=== PATIENT | male | born 1960 | race Caucasian/White ===

== ENCOUNTER → 2022-11-12 | Outpatient (CLI) | payer OTHER | END | disposition home or self-care (01) | LOC: SHCH 09:08 | PROVIDERS: ATTEND Internal Medicine Cardiovascular Disease | DX: I08.0 Rheumatic disorders of both mitral and aortic valves (principal); R01.1 Cardiac murmur, unspecified; I11.9 Hypertensive heart disease without heart failure | CPT/HCPCS: 93306 ==

== ENCOUNTER 2024-04-03 07:33 | Inpatient (IN) | payer OTHER ==
[~2024-04-03] VITALS: Ht 190.5 cm; Wt 117.7 kg
[2024-04-03 08:46] LABS: BASOPHILS # (AUTO) 0.02 K/uL (0.00-0.20); BASOPHILS % (AUTO) 0.3 % (0.0-5.0); EOSINOPHILS # (AUTO) 0.04 K/uL (0.00-0.70); EOSINOPHILS % (AUTO) 0.6 % (0.0-8.0); HEMATOCRIT 38.7 % (42-54); IMMATURE GRANULOCYTE ABSOLUTE 0.03 K/uL (0-1); LYMPHOCYTES # (AUTO) 0.4 K/uL (1.0-4.8); LYMPHOCYTES % (AUTO) 4.9 % (21.0-51.0); MEAN CORPUSCULAR HEMOGLOBIN 29.1 pg (27.0-33.0); MEAN CORPUSCULAR HGB CONC 33.6 g/dL (32.0-36.0); MEAN CORPUSCULAR VOLUME 86.6 fL (79-99); MONOCYTES # (AUTO) 0.6 K/uL (0.1-1.0); MONOCYTES % (AUTO) 8.7 % (3.0-13.0); NEUTROPHILS % (AUTO) 85.1 % (40.0-77.0); PLATELET COUNT (AUTO) 133 K/uL (130-400); RED BLOOD CELL COUNT(AUTO) 4.47 MIL/uL (4.50-6.20); RED CELL DISTRIBUTION WIDTH 13.7 % (11.0-15.5); WHITE BLOOD COUNT (AUTO) 7.1 K/uL (4.8-10.8)
[2024-04-03] MEDS: LACTATED RINGERS 1000ML 1,000 ML IV ONE (08:53)
[2024-04-03 09:02] LABS: ALBUMIN 3.3 g/dL (3.5-5.0); BILIRUBIN,TOTAL 0.8 mg/dL (0.2-1.0); CREATININE 1.2 mg/dL (0.5-1.3); POTASSIUM 4.1 mmol/L (3.5-5.1); TOTAL PROTEIN, SERUM 7.3 g/dL (6.0-8.3)
[2024-04-03 09:19] LABS: APPEARANCE,URINE CLEAR (CLEAR); BILIRUBIN,URINE NEGATIVE (NEGATIVE); COLOR,URINE LIGHT-YELLOW (YELLOW); GLUCOSE, URINE (UA) >=1000 mg/dL (NEGATIVE); KETONES,URINE 40 mg/dL (NEGATIVE); LEUKOCYTE ESTERASE ,URINE NEGATIVE Leu/uL (NEGATIVE); NITRATE,URINE NEGATIVE (NEGATIVE); OCCULT BLOOD,URINE SMALL (NEGATIVE); PROTEIN,URINE 20 mg/dL (NEGATIVE); UROBILINOGEN,URINE 0.2 mg/dL (0.2-1.0)
[2024-04-03 09:26] LABS: ADD UA MICROSCOPIC YES
[2024-04-03 09:59] LABS: MUCUS,URINE RARE LPF (None Seen); RBC,URINE 0-1 /HPF (0-1); WBC,URINE 0-1 /HPF (0-1)
[2024-04-03 10:35] LABS: SARS-CoV-2, RNA, NAAT NEGATIVE SARS CoV-2 (NEGATIVE)
[2024-04-03] MEDS: 0.9%NACL 1000ML 1,000 ML IV ONE (10:45)
[2024-04-03] MEDS ORDERED: FAMOTIDINE 20MG VIAL IV PRN (14:30)
[2024-04-03] MEDS ORDERED: hydrALAZine 20MG/ML VIAL IV PRN (14:30)
[2024-04-03] MEDS: 0.9%NACL 1000ML 1,000 ML IV SCH (14:48)
[2024-04-03] MEDS: INSULIN humuLIN R 100 UNIT/ML 3ML SQ SCH (16:30)
[2024-04-03] MEDS ORDERED: PoTASSium chl 10% ELIXIR 20MEQ 20 MEQ/15 ML UDCUP PO PRN (16:30)
[2024-04-03] MEDS ORDERED: MAGNESIUM 2GM PREMIX 50ML 50 ML IV PRN (16:30)
[2024-04-03] MEDS ORDERED: PoTASSium chloRIDE 20MEQ/100ML 100 ML IV PRN (16:30)
[2024-04-03] MEDS ORDERED: DEXTROSE 50%-WATER 50 ML DISP.SYRIN IV PRN (16:30)
[2024-04-03] MEDS ORDERED: GLUCAGON 1MG KIT 1 MG ML IM PRN (16:30)
[2024-04-03] MEDS ORDERED: PoTASSium chloRIDE 20MEQ ER 20 MEQ ERTAB PO PRN (16:30)
[2024-04-03] MEDS ORDERED: ISOS30TA92 PO (17:23)
[2024-04-03] MEDS ORDERED: APIX5TAB PO (17:23)
[2024-04-03] MEDS ORDERED: FURO40TA7 PO (17:23)
[2024-04-03] MEDS ORDERED: LOSA25TA41 PO (17:23)
[2024-04-03] MEDS ORDERED: METO-408 PO (17:23)
[2024-04-03] MEDS ORDERED: ROSU40TA88 PO (17:23)
[2024-04-03 22:20] VITALS: BP 140/77; PULSE 102; RESP 18; TEMP 98.8
[2024-04-04] MEDS ORDERED: ACET325C4 PO (00:02)
[2024-04-04] MEDS: metOPROLol sucCINATE 25 MG TAB.SR.24H PO ONE (00:28)
[2024-04-04] MEDS: acetaMINOPHEN 325 MG TAB PO PRN ×2 (00:30→14:14)
[2024-04-04 00:31] VITALS: BP 111/57; PULSE 92
[2024-04-04] MEDS ORDERED: ASPI-1197 PO (00:34)
[2024-04-04 04:25] VITALS: BP 101/59; PULSE 82; RESP 18; TEMP 98.7
[2024-04-04 05:28] LABS: BASOPHILS # (AUTO) 0.03 K/uL (0.00-0.20); BASOPHILS % (AUTO) 0.5 % (0.0-5.0); EOSINOPHILS % (AUTO) 3.4 % (0.0-8.0); HEMATOCRIT 34.8 % (42-54); IMMATURE GRANULOCYTE ABSOLUTE 0.05 K/uL (0-1); LYMPHOCYTES # (AUTO) 0.7 K/uL (1.0-4.8); LYMPHOCYTES % (AUTO) 11.4 % (21.0-51.0); MEAN CORPUSCULAR HEMOGLOBIN 29.2 pg (27.0-33.0); MEAN CORPUSCULAR HGB CONC 32.2 g/dL (32.0-36.0); MEAN CORPUSCULAR VOLUME 90.9 fL (79-99); MONOCYTES # (AUTO) 0.8 K/uL (0.1-1.0); MONOCYTES % (AUTO) 12.9 % (3.0-13.0); NEUTROPHILS # (AUTO) 4.1 K/uL (1.8-7.7); NEUTROPHILS % (AUTO) 70.9 % (40.0-77.0); PLATELET COUNT (AUTO) 139 K/uL (130-400); RED BLOOD CELL COUNT(AUTO) 3.83 MIL/uL (4.50-6.20); RED CELL DISTRIBUTION WIDTH 13.8 % (11.0-15.5); WHITE BLOOD COUNT (AUTO) 5.8 K/uL (4.8-10.8)
[2024-04-04 06:03] LABS: ALBUMIN 2.6 g/dL (3.5-5.0); BILIRUBIN,TOTAL 0.6 mg/dL (0.2-1.0); POTASSIUM 4.3 mmol/L (3.5-5.1); TOTAL PROTEIN, SERUM 6.2 g/dL (6.0-8.3)
[2024-04-04 07:53] VITALS: BP 126/64; PULSE 88; RESP 18; TEMP 98.1
[2024-04-04 08:00] VITALS: O2SAT 100
[2024-04-04] MEDS: LoSARTan 25 MG TABLET PO SCH (09:00)
[2024-04-04] MEDS: metOPROLol sucCINATE 25 MG TAB.SR.24H PO SCH (09:00)
[2024-04-04] MEDS: ISOSORBIDE MONO 30MG SR TAB PO SCH (09:00)
[2024-04-04] MEDS: APIXaban 5 MG TABLET PO SCH (09:00)
[2024-04-04 11:07] VITALS: BP 137/57; PULSE 95; RESP 18; TEMP 98.5
[2024-04-04] MEDS ORDERED: acetaMINOPHEN 325 MG TAB PO PRN (14:00)
[2024-04-04 14:46] LABS: INFLUENZA TYPE A Negative For Type A (NEGATIVE); INFLUENZA TYPE B Negative For Type B (NEGATIVE)
[2024-04-04 15:14] VITALS: TEMP 99.4
[2024-04-04] MEDS ORDERED: ASPIRIN 81MG CHEW TAB PO SCH (21:00)
[2024-04-04] MEDS ORDERED: atorVAStatin 40 MG TABLET PO SCH (21:00)
[2024-04-05] MEDS ORDERED: furoSEMIDE 40 MG TABLET PO SCH (09:00)
== END 2024-04-04 15:05 | disposition home or self-care (01) | DRG 312 ==
LOC: EDH 07:33 → EDHIP 12:20 → 3AH 21:58
PROVIDERS: ADMIT Internal Medicine Sleep Medicine; ATTEND Internal Medicine Sleep Medicine
DX: I95.2 Hypotension due to drugs (principal); K52.9 Noninfective gastroenteritis and colitis, unspecified; Z20.822 Contact with and (suspected) exposure to COVID-19; E78.5 Hyperlipidemia, unspecified; I10 Essential (primary) hypertension; E11.9 Type 2 diabetes mellitus without complications; I48.91 Unspecified atrial fibrillation; H35.30 Unspecified macular degeneration; E86.0 Dehydration; I25.10 Atherosclerotic heart disease of native coronary artery without angina pectoris; Z79.899 Other long term (current) drug therapy; T50.995A Adverse effect of other drugs, medicaments and biological substances, initial encounter; Y92.89 Other specified places as the place of occurrence of the external cause
CPT/HCPCS: 36415; 71045; 80053; 81001; 82550; 82948; 83690; 84484; 85025; 87635; 87804; 93005; 96360; G0378